=== PATIENT | female | born 1955 | race African-American/Black ===

== ENCOUNTER 2016-12-06 18:34 | Emergency (ER) | payer OTHER, MEDICAID ==
[~2016-12-06] VITALS: Ht 149.9 cm; Wt 111.0 kg
[~2016-12-06 18:34] MED LIST: ALBU2.5V13 NEB; CARI350T27 PO; CLON0.1T PO; FURO-152 PO; HYDR-3511 PO; LOSA50TA20 PO; METO50TA5 PO; OMEP20CA10 PO; TRAZ-132 PO
[2016-12-06 18:58] VITALS: BP 152/54
[2016-12-06] MEDS ORDERED: ACETAMINOPHEN 500MG TABLET PO ONE (22:30)
== END 2016-12-07 01:43 | disposition home or self-care (01) ==
LOC: ER 22:10
DX: S92.512A Displaced fracture of proximal phalanx of left lesser toe(s), initial encounter for closed fracture (principal); J45.909 Unspecified asthma, uncomplicated; I10 Essential (primary) hypertension; Z88.8 Allergy status to other drugs, medicaments and biological substances; W19.XXXA Unspecified fall, initial encounter; Y93.89 Activity, other specified; Y92.89 Other specified places as the place of occurrence of the external cause; Y99.8 Other external cause status
CPT/HCPCS: 29515; 73630; 99284

== ENCOUNTER 2017-03-07 13:17 | Emergency (ER) | payer OTHER, MEDICAID ==
[~2017-03-07] VITALS: Ht 149.9 cm; Wt 109.0 kg
[2017-03-07 15:17] LABS: CLARITY URINE CLEAR (CLEAR); COLOR URINE YELLOW (YELLOW); GLUCOSE URINE NEGATIVE (NEGATIVE); KETONES URINE NEGATIVE (NEGATIVE); LEUKOCYTE ESTERASE URINE NEGATIVE (NEGATIVE); NITRITE URINE NEGATIVE (NEGATIVE); OCCULT BLOOD URINE NEGATIVE (NEGATIVE); PROTEIN URINE NEGATIVE (NEGATIVE); SPECIFIC GRAVITY URINE 1.014 (1.005-1.030); UROBILINOGEN URINE 0.2 E.U./dL (0.2-1.0)
[2017-03-07 15:28] LABS: BASOPHILS % 2.2 % (0.0-2.0); EOSINOPHILS % 1.7 % (0.0-5.0); HEMATOCRIT. 34.9 % (36.0-48.0); HEMOGLOBIN. 11.5 g/dL (12.0-16.0); LYMPHOCYTES % 24.9 % (20.0-50.0); MEAN CORPUSCULAR HEMOGLOBIN 32.1 pg (28.0-32.0); MEAN CORPUSCULAR VOLUME 97.5 fL (81.0-99.0); MEAN PLATELET VOLUME 7.9 fl (7.4-10.4); MONOCYTES % 11.1 % (2.0-8.0); NEUTROPHILS % 60.1 % (40.0-76.0); PLATELET 261 x1000/uL (130-400); RED BLOOD CELL COUNT 3.58 mill/uL (4.2-5.4); RED CELL DISTRIBUTION WIDTH 14.2 % (11.6-14.6)
[2017-03-07 15:32] LABS: *AMPHETAMINES SCREEN URINE NEGATIVE (NEGATIVE); *BARBITURATES SCREEN URINE NEGATIVE (NEGATIVE); *BENZODIAZEPINES SCREEN URINE NEGATIVE (NEGATIVE); *COCAINE SCREEN URINE NEGATIVE (NEGATIVE); CANNABINOID URINE SCREEN NEGATIVE (NEGATIVE); METHADONE URINE SCREEN NEGATIVE (NEGATIVE); OPIATES URINE SCREEN NEGATIVE (NEGATIVE); PHENCYCLIDINE URINE SCREEN NEGATIVE (NEGATIVE)
[2017-03-07 15:40] LABS: AMMONIA 25 uMol/L (<32)
[2017-03-07 15:43] LABS: CARBON DIOXIDE 32 mEq/L (21-32); CHLORIDE 99 mEq/L (98-107); CREATINE KINASE 103 IU/L (26-192); ETHANOL BLOOD < 10 mg/dL
[2017-03-07 15:44] LABS: TROPONIN I < 0.02 ng/mL (0.00-0.04)
[2017-03-07 15:56] LABS: INR 1.1
[2017-03-07 18:32] VITALS: BP 124/61
== END 2017-03-07 19:11 | disposition home or self-care (01) ==
LOC: ER 13:17
DX: M62.838 Other muscle spasm (principal); K59.00 Constipation, unspecified; J45.909 Unspecified asthma, uncomplicated; Z87.891 Personal history of nicotine dependence; Z88.8 Allergy status to other drugs, medicaments and biological substances
CPT/HCPCS: 36415; 71010; 80053; 80305; 81003; 82140; 82550; 83735; 84443; 84484; 85025; 85610; 93005; 99285; G0482

== ENCOUNTER 2017-12-01 21:48 | Emergency (ER) | payer MEDICARE, MEDICAID ==
[~2017-12-01] VITALS: Ht 149.9 cm; Wt 109.9 kg
[~2017-12-01 21:48] MED LIST changes: +METO-539 PO; -METO50TA5 PO
[2017-12-01] MEDS ORDERED: ASPIRIN 325MG TABLET PO NR (23:45)
[2017-12-02 01:25] LABS: BASOPHILS % 0.3 % (0.0-2.0); EOSINOPHILS % 1.5 % (0.0-5.0); HEMATOCRIT. 29.7 % (36.0-48.0); HEMOGLOBIN. 9.6 g/dL (12.0-16.0); LYMPHOCYTES % 17.2 % (20.0-50.0); MEAN CORPUSCULAR HEMOGLOBIN 31.9 pg (28.0-32.0); MEAN CORPUSCULAR VOLUME 98.3 fL (81.0-99.0); MEAN PLATELET VOLUME 7.8 fl (7.4-10.4); MONOCYTES % 9.9 % (2.0-8.0); NEUTROPHILS % 71.1 % (40.0-76.0); PLATELET 319 x1000/uL (130-400); RED BLOOD CELL COUNT 3.02 mill/uL (4.2-5.4); RED CELL DISTRIBUTION WIDTH 15.1 % (11.6-14.6)
[2017-12-02 01:32] LABS: CHLORIDE 105 mEq/L (98-107)
[2017-12-02 01:36] LABS: INR 1.4; PARTIAL THROMBOPLASTIN TIME 30.1 sec (23.4-31.0); PROTHROMBIN TIME 14.7 sec (9.4-11.6)
[2017-12-02 04:22] LABS: CLARITY URINE CLEAR (CLEAR); COLOR URINE YELLOW (YELLOW); KETONES URINE NEGATIVE (NEGATIVE); LEUKOCYTE ESTERASE URINE NEGATIVE (NEGATIVE); NITRITE URINE NEGATIVE (NEGATIVE); OCCULT BLOOD URINE NEGATIVE (NEGATIVE); PROTEIN URINE NEGATIVE (NEGATIVE); SPECIFIC GRAVITY URINE 1.008 (1.005-1.030); UROBILINOGEN URINE 0.2 E.U./dL (0.2-1.0)
[2017-12-02 05:06] VITALS: BP 152/86
== END 2017-12-02 05:15 | disposition home or self-care (01) ==
LOC: ER 23:30
DX: R07.89 Other chest pain (principal); K80.20 Calculus of gallbladder without cholecystitis without obstruction; J45.909 Unspecified asthma, uncomplicated; I10 Essential (primary) hypertension; E78.00 Pure hypercholesterolemia, unspecified; M19.90 Unspecified osteoarthritis, unspecified site; Z87.891 Personal history of nicotine dependence; Z88.1 Allergy status to other antibiotic agents
CPT/HCPCS: 36415; 71045; 76700; 80053; 81003; 83605; 83880; 84484; 85025; 85610; 85730; 93005; 99285

== ENCOUNTER 2018-10-19 06:17 | Inpatient (IN) | payer MEDICARE, OTHER ==
[~2018-10-19] VITALS: Ht 162.6 cm; Wt 99.8 kg
[~2018-10-19 06:17] MED LIST changes: -HYDR-3511 PO; +HYDR-3512 PO; -LOSA50TA20 PO; +LOSA50TA41 PO; -OMEP20CA10 PO; +OMEP20CA5 PO; -TRAZ-132 PO; +TRAZ-213 PO
[2018-10-19] MEDS ORDERED: IPRATROPIUM BROMIDE (0.02%) 0.5MG/2.5ML NEB HHN STA (06:54)
[2018-10-19] MEDS ORDERED: METHYLPREDNISOLONE SOD SUCC 125 MG/2 ML VIAL IV STA (06:54)
[2018-10-19] MEDS ORDERED: ALBUTEROL (0.083%) 2.5MG/3ML NEB HHN STA (06:54)
[2018-10-19] MEDS ORDERED: MAGNESIUM 2 G PREMIX 50 ML IV ONE (07:00)
[2018-10-19] MEDS ORDERED: FUROSEMIDE 20MG/2ML VIAL IVP ONE (07:00)
[2018-10-19 07:09] LABS: CHLORIDE 102 mEq/L (98-107)
[2018-10-19 07:14] LABS: INR 1.8; PARTIAL THROMBOPLASTIN TIME 32.8 sec (23.4-31.0); PROTHROMBIN TIME 17.7 sec (9.6-11.0)
[2018-10-19 07:15] LABS: BASOPHILS % 0.6 % (0.0-2.0); EOSINOPHILS % 0.7 % (0.0-5.0); HEMATOCRIT. 36.3 % (36.0-48.0); HEMOGLOBIN. 11.9 g/dL (12.0-16.0); MEAN CORPUSCULAR HEMOGLOBIN 31.7 pg (28.0-32.0); MEAN PLATELET VOLUME 8.3 fl (7.4-10.4); MONOCYTES % 5.6 % (2.0-8.0); NEUTROPHILS % 82.1 % (40.0-76.0); PLATELET 261 x1000/uL (130-400); RED BLOOD CELL COUNT 3.75 mill/uL (4.2-5.4); RED CELL DISTRIBUTION WIDTH 14.1 % (11.6-14.6)
[2018-10-19 08:29] LABS: CLARITY URINE CLEAR (CLEAR); COLOR URINE YELLOW (YELLOW); KETONES URINE NEGATIVE (NEGATIVE); LEUKOCYTE ESTERASE URINE NEGATIVE (NEGATIVE); NITRITE URINE NEGATIVE (NEGATIVE); OCCULT BLOOD URINE NEGATIVE (NEGATIVE); PROTEIN URINE NEGATIVE (NEGATIVE); SPECIFIC GRAVITY URINE 1.006 (1.005-1.030); UROBILINOGEN URINE 0.2 E.U./dL (0.2-1.0)
[2018-10-19] MEDS ORDERED: POTASSIUM CHLORIDE 20MEQ TABLET SR PO ONE (08:30)
[2018-10-19 09:30] VITALS: BP 180/96
[2018-10-19 09:45] VITALS: BP 180/96
[2018-10-19 12:00] VITALS: BP 173/95
[2018-10-19] MEDS ORDERED: DIPHENHYDRAMINE 50MG/ML VIAL IV PRN (13:30)
[2018-10-19] MEDS ORDERED: MEDICATION NOT ON FORMULARY EA (Furosemide (Lasix) 20 MG) PO SCH (13:30)
[2018-10-19] MEDS ORDERED: HYDROCODONE/ACETAMINOPHEN 5/325MG TABLET PO PRN (13:30)
[2018-10-19] MEDS ORDERED: ACETAMINOPHEN 650MG SUPP PR PRN (13:30)
[2018-10-19] MEDS ORDERED: GUAIFENESIN 200MG/10ML SUGAR FREE UDC PO PRN (13:30)
[2018-10-19] MEDS ORDERED: DOCUSATE SODIUM 100MG CAPSULE PO PRN (13:30)
[2018-10-19] MEDS ORDERED: MEDICATION NOT ON FORMULARY EA (Metoprolol Tartrate 100 MG) PO SCH (13:30)
[2018-10-19] MEDS ORDERED: MAGNESIUM/ALUMINUM HYDROXIDE/SIMETHICONE 30ML UDC PO PRN (13:30)
[2018-10-19] MEDS ORDERED: MEDICATION NOT ON FORMULARY EA (Losartan Potassium 50 MG) PO SCH (13:30)
[2018-10-19] MEDS ORDERED: IPRATROPIUM/ALBUTEROL 0.5-3(2.5)MG/3ML NEB INH PRN (13:30)
[2018-10-19] MEDS ORDERED: ONDANSETRON HCL 4MG/2ML INJ IV PRN (13:30)
[2018-10-19] MEDS ORDERED: NA PHOS,M-B/NA PHOS,DI-BA ENEMA 118ML PR PRN (13:30)
[2018-10-19 14:08] LABS: BG BASE EXCESS 5.5 mmol/L (-2.0-2.0); BG CARBOXYHEMOGLOBIN 0.8 % (0.5-1.5); BG DEOXYHEMOGLOBIN 6.8 % (0.0-5.0); BG HCO3 ACT 28.2 mmol/L (22.0-26.0); BG METHEMOGLOBIN 0.2 % (0.0-1.5); BG OXYGEN SATURATION 93.1 % (92.0-98.5); BG OXYHEMOGLOBIN 92.2 % (94.0-97.0); BG PCO2 34.8 mmHg (35.0-45.0); BG PH 7.526 (7.350-7.450); BG SAMPLE SITE RIGHT BRACHIAL; BG VENT MODE ROOM AIR
[2018-10-19] MEDS: AMLODIPINE 5MG TABLET PO SCH (14:13)
[2018-10-19] MEDS: CLONIDINE 0.1MG TABLET PO PRN (15:14)
[2018-10-19] MEDS: LORATADINE 10MG TABLET PO SCH (15:14)
[2018-10-19] MEDS: FUROSEMIDE 20MG TABLET PO SCH (15:15)
[2018-10-19] MEDS: METHYLPREDNISOLONE SOD SUCC 40 MG/ML VIAL IV SCH ×2 (15:15→21:16)
[2018-10-19] MEDS: LOSARTAN POTASSIUM 50 MG TABLET PO SCH (15:15)
[2018-10-19] MEDS: LEVOFLOXACIN 500MG PREMIX 100 ML IV SCH (16:23)
[2018-10-19 16:44] VITALS: BP 193/112
[2018-10-19] MEDS ORDERED: MEDICATION NOT ON FORMULARY EA (Carisoprodol 350 MG) PO SCH (17:00)
[2018-10-19] MEDS: ACETAMINOPHEN 325MG TABLET PO PRN (17:22)
[2018-10-19] MEDS: METOPROLOL TARTRATE 50MG TABLET PO SCH (17:23)
[2018-10-19] MEDS ORDERED: HYDRALAZINE 20MG/ML VIAL IV PRN (17:30)
[2018-10-19] MEDS: CLONIDINE 0.1MG TABLET PO SCH ×2 (17:45→23:52)
[2018-10-19] MEDS ORDERED: WARFARIN SODIUM 3MG TABLET PO SCH (18:00)
[2018-10-19 20:00] VITALS: BP 138/86
[2018-10-19] MEDS: FAMOTIDINE 20MG/2ML VIAL IV SCH (21:15)
[2018-10-19] MEDS: MONTELUKAST SODIUM 10MG TABLET PO SCH (21:20)
[2018-10-19] MEDS: LORAZEPAM 0.5MG TABLET PO PRN (21:32)
[2018-10-19] MEDS: BUDESONIDE 0.5MG/2ML NEB HHN SCH (21:40)
[2018-10-19] MEDS: IPRATROPIUM/ALBUTEROL 0.5-3(2.5)MG/3ML NEB INH SCH (21:40)
[2018-10-20] VITALS: BP 136/82
[2018-10-20] MEDS: IPRATROPIUM/ALBUTEROL 0.5-3(2.5)MG/3ML NEB INH SCH ×6 (00:50→20:43)
[2018-10-20 04:00] VITALS: BP 155/81
[2018-10-20] MEDS: ACETAMINOPHEN 325MG TABLET PO PRN ×2 (05:04→14:55)
[2018-10-20] MEDS: METOPROLOL TARTRATE 50MG TABLET PO SCH ×2 (06:22→17:58)
[2018-10-20] MEDS: CLONIDINE 0.1MG TABLET PO SCH ×2 (06:22→18:40)
[2018-10-20] MEDS: METHYLPREDNISOLONE SOD SUCC 40 MG/ML VIAL IV SCH ×2 (06:23→17:56)
[2018-10-20 07:11] LABS: INR 1.3; PROTHROMBIN TIME 13.2 sec (9.6-11.0)
[2018-10-20 07:16] LABS: CHLORIDE 103 mEq/L (98-107)
[2018-10-20 07:24] LABS: BASOPHILS % 0.1 % (0.0-2.0); HEMATOCRIT. 34.8 % (36.0-48.0); HEMOGLOBIN. 11.6 g/dL (12.0-16.0); LYMPHOCYTES % 8.6 % (20.0-50.0); MEAN CORPUSCULAR HEMOGLOBIN 32.5 pg (28.0-32.0); MEAN CORPUSCULAR VOLUME 97.6 fL (81.0-99.0); MEAN PLATELET VOLUME 8.5 fl (7.4-10.4); MONOCYTES % 9.6 % (2.0-8.0); NEUTROPHILS % 81.7 % (40.0-76.0); PLATELET 255 x1000/uL (130-400); RED BLOOD CELL COUNT 3.57 mill/uL (4.2-5.4); RED CELL DISTRIBUTION WIDTH 13.8 % (11.6-14.6)
[2018-10-20 07:45] LABS: LDL CHOLESTEROL 76 mg/dL (5-100)
[2018-10-20 07:47] LABS: HDL CHOLESTEROL 94 mg/dL (40-59); T4 FREE 1.03 ng/dL (0.76-1.46)
[2018-10-20 08:00] VITALS: BP 158/86
[2018-10-20] MEDS: LOSARTAN POTASSIUM 50 MG TABLET PO SCH (09:03)
[2018-10-20] MEDS: LORATADINE 10MG TABLET PO SCH (09:03)
[2018-10-20] MEDS: FUROSEMIDE 20MG TABLET PO SCH (09:04)
[2018-10-20] MEDS: AMLODIPINE 5MG TABLET PO SCH ×2 (09:04→17:57)
[2018-10-20] MEDS: FAMOTIDINE 20MG/2ML VIAL IV SCH ×2 (09:14→21:08)
[2018-10-20] MEDS ORDERED: POTASSIUM CHLORIDE 20MEQ TABLET SR PO NR (09:30)
[2018-10-20] MEDS: POTASSIUM CHLORIDE 20MEQ TABLET SR PO SCH (11:30)
[2018-10-20 12:00] VITALS: BP 185/114
[2018-10-20 14:13] LABS: *AMPHETAMINES SCREEN URINE NEGATIVE (NEGATIVE)
[2018-10-20 14:14] LABS: *BARBITURATES SCREEN URINE NEGATIVE (NEGATIVE); *BENZODIAZEPINES SCREEN URINE NEGATIVE (NEGATIVE); *COCAINE SCREEN URINE NEGATIVE (NEGATIVE); CANNABINOID URINE SCREEN NEGATIVE (NEGATIVE); METHADONE URINE SCREEN NEGATIVE (NEGATIVE); OPIATES URINE SCREEN NEGATIVE (NEGATIVE); PHENCYCLIDINE URINE SCREEN NEGATIVE (NEGATIVE)
[2018-10-20] MEDS: HYDRALAZINE HCL 50MG TABLET PO SCH ×2 (14:55→21:08)
[2018-10-20 16:00] VITALS: BP 151/70
[2018-10-20] MEDS: BUDESONIDE 0.5MG/2ML NEB HHN SCH ×2 (16:27→20:43)
[2018-10-20] MEDS: APIXABAN 2.5 MG TABLET PO SCH (17:56)
[2018-10-20] MEDS: CLONIDINE 0.1MG TABLET PO PRN (17:57)
[2018-10-20] MEDS ORDERED: WARFARIN SODIUM 7.5MG TABLET PO SCH (18:00)
[2018-10-20] MEDS: LEVOFLOXACIN 500MG PREMIX 100 ML IV SCH (18:13)
[2018-10-20 20:00] VITALS: BP 144/83
[2018-10-20] MEDS: MONTELUKAST SODIUM 10MG TABLET PO SCH (21:08)
[2018-10-21] VITALS: BP 129/64
[2018-10-21] MEDS: CLONIDINE 0.1MG TABLET PO SCH ×3 (00:14→13:23)
[2018-10-21] MEDS: LORAZEPAM 0.5MG TABLET PO PRN (00:14)
[2018-10-21 04:00] VITALS: BP 141/81
[2018-10-21] MEDS: ACETAMINOPHEN 325MG TABLET PO PRN (04:34)
[2018-10-21] MEDS: HYDRALAZINE HCL 50MG TABLET PO SCH ×2 (06:11→13:20)
[2018-10-21] MEDS: METOPROLOL TARTRATE 50MG TABLET PO SCH (06:11)
[2018-10-21] MEDS: METHYLPREDNISOLONE SOD SUCC 40 MG/ML VIAL IV SCH (06:11)
[2018-10-21 06:31] LABS: CHLORIDE 103 mEq/L (98-107)
[2018-10-21 06:44] LABS: HEMATOCRIT 33.5 % (36.0-48.0); HEMOGLOBIN 11.2 g/dL (12.0-16.0); MEAN CORPUSCULAR HEMOGLOBIN 32.7 pg (28.0-32.0); MEAN CORPUSCULAR VOLUME 97.8 fL (81.0-99.0); PLATELET 284 x1000/uL (130-400); RED BLOOD CELL COUNT 3.43 mill/uL (4.2-5.4)
[2018-10-21] MEDS: IPRATROPIUM/ALBUTEROL 0.5-3(2.5)MG/3ML NEB INH SCH ×3 (07:48→15:27)
[2018-10-21 08:00] VITALS: BP 130/85
[2018-10-21] MEDS: POTASSIUM CHLORIDE 20MEQ TABLET SR PO SCH (08:53)
[2018-10-21] MEDS: FAMOTIDINE 20MG/2ML VIAL IV SCH (08:53)
[2018-10-21] MEDS: AMLODIPINE 5MG TABLET PO SCH (08:56)
[2018-10-21] MEDS: LORATADINE 10MG TABLET PO SCH (08:56)
[2018-10-21] MEDS: FUROSEMIDE 20MG TABLET PO SCH (08:56)
[2018-10-21] MEDS: APIXABAN 2.5 MG TABLET PO SCH (08:56)
[2018-10-21] MEDS: LOSARTAN POTASSIUM 50 MG TABLET PO SCH (08:56)
[2018-10-21] MEDS ORDERED: LEVOFLOXACIN 500MG TABLET PO SCH (11:00)
[2018-10-21 11:55] VITALS: BP 132/79
[2018-10-21 15:42] VITALS: BP 149/75
== END 2018-10-21 17:05 | disposition home health service (06) | DRG 291 ==
LOC: ER 06:17 → 7WST 07:50 → EDBEDREQ 07:55 → EDBEDREQTM 07:55 → ENRESERV 08:25
PROVIDERS: ADMIT Internal Medicine; ATTEND Internal Medicine
DX: I11.0 Hypertensive heart disease with heart failure (principal); J96.20 Acute and chronic respiratory failure, unspecified whether with hypoxia or hypercapnia; J44.1 Chronic obstructive pulmonary disease with (acute) exacerbation; J45.901 Unspecified asthma with (acute) exacerbation; D68.59 Other primary thrombophilia; E87.2 Acidosis; N39.0 Urinary tract infection, site not specified; E66.2 Morbid (severe) obesity with alveolar hypoventilation; I50.43 Acute on chronic combined systolic (congestive) and diastolic (congestive) heart failure; E87.6 Hypokalemia; R06.03 Acute respiratory distress; B96.20 Unspecified Escherichia coli [E. coli] as the cause of diseases classified elsewhere; D64.9 Anemia, unspecified; E03.9 Hypothyroidism, unspecified; E78.5 Hyperlipidemia, unspecified; I27.20 Pulmonary hypertension, unspecified; R73.03 Prediabetes; Z79.01 Long term (current) use of anticoagulants; Z86.718 Personal history of other venous thrombosis and embolism; Z87.891 Personal history of nicotine dependence; Z88.8 Allergy status to other drugs, medicaments and biological substances; Z68.37 Body mass index [BMI] 37.0-37.9, adult
CPT/HCPCS: 36415; 36600; 71045; 80048; 80061; 80305; 82375; 82805; 83036; 83605; 83880; 84145; 84439; 84443; 84484; 85027; 87077; 87186; 93005; 93306; 93970; 94640; 94644; 96365; 96375; 97162; 99291; C1893; J0360; J1940; J1956; J2920; J2930; J3475; J3490; J7050; J7611; J7620; J7626

== ENCOUNTER → 2019-07-15 | Outpatient (CLI) | payer MEDICARE, OTHER ==
[~2019-07-15] MED LIST changes: +OMEP20CA14 PO; -OMEP20CA5 PO; -TRAZ-213 PO; +TRAZ-252 PO
== END | disposition home or self-care (01) ==
LOC: US 13:50
PROVIDERS: ATTEND Internal Medicine Nephrology
DX: N18.9 Chronic kidney disease, unspecified (principal)
CPT/HCPCS: 76770

== ENCOUNTER 2020-01-20 09:40 | Emergency (ER) | payer BC, MEDICAID ==
[~2020-01-20] VITALS: Ht 149.9 cm; Wt 150.0 kg
[2020-01-20] MEDS ORDERED: LABETALOL 5MG/ML SYR 20 MG/4 ML SYRINGE IV ONE (10:30)
[2020-01-20 10:34] LABS: BASOPHILS % 0.6 % (0.0-2.0); EOSINOPHILS % 0.3 % (0.0-5.0); HEMATOCRIT. 36.8 % (36.0-48.0); HEMOGLOBIN. 12.1 g/dL (12.0-16.0); LYMPHOCYTES % 8.7 % (20.0-50.0); MEAN CORPUSCULAR HEMOGLOBIN 32.9 pg (28.0-32.0); MEAN CORPUSCULAR VOLUME 99.5 fL (81.0-99.0); MEAN PLATELET VOLUME 8.9 fl (7.4-10.4); MONOCYTES % 8.9 % (2.0-8.0); NEUTROPHILS % 81.5 % (40.0-76.0); PLATELET 208 x1000/uL (130-400); RED CELL DISTRIBUTION WIDTH 15.1 % (11.6-14.6)
[2020-01-20 10:41] LABS: CHLORIDE 99 mEq/L (98-107)
[2020-01-20 10:45] LABS: INR 1.1
[2020-01-20] MEDS ORDERED: LIDOCAINE HCL/EPINEPHRINE 1%-EPI 1:100,000 20 ML VIAL ONE (11:07)
[2020-01-20] MEDS ORDERED: BACITRACIN ZINC OINT UDPKT TOP ONE ×2 (11:15)
[2020-01-20] MEDS ORDERED: LIDOCAINE 1%/EPI 1:100,000 10 ML VIAL IJ ONE ×2 (11:15)
[2020-01-20] MEDS ORDERED: TETANUS, DIPHTHERIA, PERTUSSIS VAC/PF 0.5ML (>7YR OLD) IM ONE (11:15)
[2020-01-20 11:41] VITALS: BP 174/124
[2020-01-20 11:54] LABS: HEMATOCRIT 32.3 % (36.0-48.0); HEMOGLOBIN 10.6 g/dL (12.0-16.0); MEAN CORPUSCULAR HEMOGLOBIN 32.9 pg (28.0-32.0); MEAN CORPUSCULAR VOLUME 100.1 fL (81.0-99.0); PLATELET 186 x1000/uL (130-400); RED BLOOD CELL COUNT 3.23 mill/uL (4.2-5.4); RED CELL DISTRIBUTION WIDTH 14.8 % (11.6-14.6)
== END 2020-01-20 14:45 | disposition short-term general hospital (02) ==
LOC: ER 09:40 → EDBEDREQSVC 10:24 → ER 14:45 → CANBEDREQ 16:49
DX: S22.20XA Unspecified fracture of sternum, initial encounter for closed fracture (principal); S06.9X9A Unspecified intracranial injury with loss of consciousness of unspecified duration, initial encounter; I16.0 Hypertensive urgency; I11.0 Hypertensive heart disease with heart failure; I50.9 Heart failure, unspecified; D62 Acute posthemorrhagic anemia; Z88.1 Allergy status to other antibiotic agents; Z79.899 Other long term (current) drug therapy; Z98.51 Tubal ligation status; W18.30XA Fall on same level, unspecified, initial encounter; Y93.89 Activity, other specified; Y92.89 Other specified places as the place of occurrence of the external cause; Y99.8 Other external cause status
CPT/HCPCS: 36415; 70450; 71045; 71250; 72125; 80053; 83690; 83880; 84484; 85025; 85027; 85610; 86850; 86900; 86901; 90471; 90715; 93005; 96374; 99285; J3490

== ENCOUNTER 2021-05-11 17:45 | Inpatient (IN) | payer BC, MEDICAID ==
[~2021-05-11] VITALS: Ht 149.9 cm; Wt 98.0 kg
[2021-05-12 00:45] LABS: BASOPHILS % 0.9 % (0.0-2.0); EOSINOPHILS % 1.1 % (0.0-5.0); HEMATOCRIT. 32.9 % (36.0-48.0); HEMOGLOBIN. 10.7 g/dL (12.0-16.0); LYMPHOCYTES % 20.3 % (20.0-50.0); MEAN CORPUSCULAR HEMOGLOBIN 33.5 pg (28.0-32.0); MEAN PLATELET VOLUME 8.2 fl (7.4-10.4); NEUTROPHILS % 63.7 % (40.0-76.0); PLATELET 295 x1000/uL (130-400); RED CELL DISTRIBUTION WIDTH 16.8 % (11.6-14.6)
[2021-05-12 00:52] LABS: CHLORIDE 110 mEq/L (98-107)
[2021-05-12] MEDS ORDERED: SODIUM CHLORIDE 0.9% 1,000 ML IV ONE (04:00)
[2021-05-12 08:30] VITALS: BP 157/88
[2021-05-12] MEDS ORDERED: DOCUSATE SODIUM 100MG CAPSULE PO PRN (11:00)
[2021-05-12] MEDS ORDERED: NA PHOS,M-B/NA PHOS,DI-BA ENEMA 118ML PR PRN (11:00)
[2021-05-12] MEDS ORDERED: DIPHENHYDRAMINE 50MG/ML VIAL IV PRN (11:00)
[2021-05-12] MEDS ORDERED: IPRATROPIUM/ALBUTEROL 0.5-3(2.5)MG/3ML NEB NEB PRN (11:00)
[2021-05-12] MEDS ORDERED: LORAZEPAM 0.5MG TABLET PO PRN (11:00)
[2021-05-12] MEDS ORDERED: ACETAMINOPHEN 650MG SUPP PR PRN (11:00)
[2021-05-12] MEDS ORDERED: CLONIDINE 0.1MG TABLET PO PRN (11:00)
[2021-05-12] MEDS ORDERED: MAGNESIUM/ALUMINUM HYDROXIDE/SIMETHICONE 30ML UDC PO PRN (11:00)
[2021-05-12] MEDS ORDERED: GUAIFENESIN 200MG/10ML SUGAR FREE UDC PO PRN (11:00)
[2021-05-12] MEDS ORDERED: NALOXONE HCL 0.4MG/ML VIAL IV PRN (11:30)
[2021-05-12] MEDS: ONDANSETRON HCL 4MG/2ML INJ IV PRN ×2 (13:06→21:40)
[2021-05-12] MEDS: DEXT 5%/0.45% NACL 1000ML 1,000 ML IV SCH ×2 (13:07→21:41)
[2021-05-12] MEDS: PIPERACILLIN/TAZOBACTAM 3.375 G in DEXTROSE 5% WATER 50 ML IV SCH ×2 (13:07→21:41)
[2021-05-12 17:51] LABS: BASOPHILS % 0.9 % (0.0-2.0); EOSINOPHILS % 1.1 % (0.0-5.0); HEMOGLOBIN. 10.3 g/dL (12.0-16.0); LYMPHOCYTES % 11.1 % (20.0-50.0); MEAN CORPUSCULAR HEMOGLOBIN 33.7 pg (28.0-32.0); MEAN CORPUSCULAR VOLUME 101.4 fL (81.0-99.0); MEAN PLATELET VOLUME 8.7 fl (7.4-10.4); MONOCYTES % 12.4 % (2.0-8.0); NEUTROPHILS % 74.5 % (40.0-76.0); PLATELET 282 x1000/uL (130-400); RED BLOOD CELL COUNT 3.06 mill/uL (4.2-5.4); RED CELL DISTRIBUTION WIDTH 16.2 % (11.6-14.6)
[2021-05-12 18:05] LABS: INR 1.2; PARTIAL THROMBOPLASTIN TIME 26.8 sec (23.4-31.0); PROTHROMBIN TIME 12.3 sec (9.6-11.0)
[2021-05-12 18:07] LABS: CHLORIDE 113 mEq/L (98-107)
[2021-05-12 18:11] LABS: CREATINE KINASE 87 IU/L (26-192)
[2021-05-12 18:12] LABS: CREATINE KINASE MB FRACTION < 1.0 ng/mL (0.5-3.6)
[2021-05-12 20:00] VITALS: BP 76/41
[2021-05-12] MEDS ORDERED: INFLUENZA VACCINE 05/PF 0.5 ML SYRINGE IM ONE (20:00)
[2021-05-12] MEDS: FAMOTIDINE 20MG TABLET PO SCH (21:40)
[2021-05-12] MEDS: HEPARIN 5000 UNITS/ML VIAL SUBCUT SCH (21:41)
[2021-05-12 23:52] LABS: CREATINE KINASE 80 IU/L (26-192)
[2021-05-12 23:53] LABS: CREATINE KINASE MB FRACTION < 1.0 ng/mL (0.5-3.6)
[2021-05-13] VITALS: BP 87/48
[2021-05-13] MEDS ORDERED: SODIUM CHLORIDE 0.9% 500 ML IV NR (00:30)
[2021-05-13 04:00] VITALS: BP 91/45
[2021-05-13] MEDS: DEXT 5%/0.45% NACL 1000ML 1,000 ML IV SCH ×2 (07:00→20:31)
[2021-05-13 08:00] VITALS: BP 91/48
[2021-05-13] MEDS: HYDROCODONE/ACETAMINOPHEN 5/325MG TABLET PO PRN (08:48)
[2021-05-13] MEDS: HEPARIN 5000 UNITS/ML VIAL SUBCUT SCH ×2 (08:52→20:24)
[2021-05-13 10:07] LABS: HEMATOCRIT. 30.4 % (36.0-48.0); HEMOGLOBIN. 9.8 g/dL (12.0-16.0); MEAN CORPUSCULAR HEMOGLOBIN 33.4 pg (28.0-32.0); MEAN PLATELET VOLUME 8.7 fl (7.4-10.4); PLATELET 269 x1000/uL (130-400); RED BLOOD CELL COUNT 2.93 mill/uL (4.2-5.4); RED CELL DISTRIBUTION WIDTH 16.5 % (11.6-14.6)
[2021-05-13] MEDS: PIPERACILLIN/TAZOBACTAM 3.375 G in DEXTROSE 5% WATER 50 ML IV SCH ×2 (10:15→20:24)
[2021-05-13 10:21] LABS: CHLORIDE 110 mEq/L (98-107)
[2021-05-13 10:35] LABS: LDL CHOLESTEROL 55 mg/dL (5-100)
[2021-05-13 10:37] LABS: HDL CHOLESTEROL 83 mg/dL (40-59); T4 FREE 1.02 ng/dL (0.76-1.46)
[2021-05-13 11:31] LABS: PLATELET ESTIMATE NORMAL
[2021-05-13 12:00] VITALS: BP 92/56
[2021-05-13] MEDS: POTASSIUM CHLORIDE INJ 40 MEQ in DEXT 5% WATER 250 ML IV NR ×3 (12:00→15:07)
[2021-05-13] MEDS ORDERED: POTASSIUM CHLORIDE 20MEQ TABLET SR PO NR (15:15)
[2021-05-13 16:00] VITALS: BP 123/101
[2021-05-13] MEDS ORDERED: VANCOMYCIN HCL 1 GM/VIAL PO SCH (18:00)
[2021-05-13] MEDS: VANCOMYCIN HCL 1000 MG/20 ML ORAL PO SCH ×3 (18:38→21:38)
[2021-05-13 20:00] VITALS: BP 103/48
[2021-05-13] MEDS: FAMOTIDINE 20MG TABLET PO SCH (20:25)
[2021-05-13] MEDS ORDERED: MAGNESIUM 2 G PREMIX 50 ML IV ONE (21:30)
[2021-05-13] MEDS ORDERED: MAGNESIUM SULFATE 3 GM in DEXTROSE 5% WATER 100 ML IV NR (22:00)
[2021-05-13 22:37] LABS: CLARITY URINE CLEAR (CLEAR); COLOR URINE YELLOW (YELLOW); KETONES URINE NEGATIVE (NEGATIVE); LEUKOCYTE ESTERASE URINE TRACE (NEGATIVE); NITRITE URINE NEGATIVE (NEGATIVE); OCCULT BLOOD URINE NEGATIVE (NEGATIVE); PROTEIN URINE 1+ (NEGATIVE); SPECIFIC GRAVITY URINE 1.014 (1.005-1.030); UROBILINOGEN URINE 0.2 E.U./dL (0.2-1.0)
[2021-05-13 22:52] LABS: *AMPHETAMINES SCREEN URINE NEGATIVE (NEGATIVE); *BARBITURATES SCREEN URINE NEGATIVE (NEGATIVE); *BENZODIAZEPINES SCREEN URINE NEGATIVE (NEGATIVE); *COCAINE SCREEN URINE NEGATIVE (NEGATIVE); CANNABINOID URINE SCREEN NEGATIVE (NEGATIVE); PHENCYCLIDINE URINE SCREEN NEGATIVE (NEGATIVE)
[2021-05-13 22:53] LABS: METHADONE URINE SCREEN NEGATIVE (NEGATIVE); OPIATES URINE SCREEN PRESUMTIVE POSITIVE (NEGATIVE)
[2021-05-13] MEDS ORDERED: MAGNESIUM 1 G PREMIX 100 ML IV ONE (23:30)
[2021-05-14] VITALS: BP 111/50
[2021-05-14] MEDS: DEXT 5%/0.45% NACL 1000ML 1,000 ML IV SCH ×3 (02:24→23:03)
[2021-05-14 04:00] VITALS: BP 101/48
[2021-05-14] MEDS: HYDROCODONE/ACETAMINOPHEN 5/325MG TABLET PO PRN ×2 (04:15→20:17)
[2021-05-14 06:42] LABS: HEMATOCRIT. 30.5 % (36.0-48.0); HEMOGLOBIN. 9.5 g/dL (12.0-16.0); MEAN CORPUSCULAR HEMOGLOBIN 33.6 pg (28.0-32.0); MEAN CORPUSCULAR VOLUME 107.6 fL (81.0-99.0); MEAN PLATELET VOLUME 8.3 fl (7.4-10.4); PLATELET 214 x1000/uL (130-400); RED BLOOD CELL COUNT 2.84 mill/uL (4.2-5.4); RED CELL DISTRIBUTION WIDTH 16.8 % (11.6-14.6)
[2021-05-14 08:00] VITALS: BP 103/52
[2021-05-14] MEDS: VANCOMYCIN HCL 1000 MG/20 ML ORAL PO SCH ×4 (08:56→20:05)
[2021-05-14] MEDS: PIPERACILLIN/TAZOBACTAM 3.375 G in DEXTROSE 5% WATER 50 ML IV SCH ×2 (08:56→20:05)
[2021-05-14] MEDS: HEPARIN 5000 UNITS/ML VIAL SUBCUT SCH ×2 (08:56→20:06)
[2021-05-14 12:00] VITALS: BP 92/45
[2021-05-14 16:00] VITALS: BP 111/64
[2021-05-14 20:00] VITALS: BP 95/63
[2021-05-14] MEDS: FAMOTIDINE 20MG TABLET PO SCH (20:05)
[2021-05-15] VITALS: BP 103/65
[2021-05-15 03:56] VITALS: BP 106/66
[2021-05-15 08:00] VITALS: BP 123/80
[2021-05-15] MEDS: HEPARIN 5000 UNITS/ML VIAL SUBCUT SCH ×2 (08:52→21:50)
[2021-05-15] MEDS: PIPERACILLIN/TAZOBACTAM 3.375 G in DEXTROSE 5% WATER 50 ML IV SCH ×2 (08:52→21:54)
[2021-05-15] MEDS: VANCOMYCIN HCL 1000 MG/20 ML ORAL PO SCH ×4 (09:00→21:49)
[2021-05-15 10:00] LABS: PLATELET ESTIMATE NORMAL
[2021-05-15] MEDS: HYDROCODONE/ACETAMINOPHEN 5/325MG TABLET PO PRN ×2 (11:19→23:25)
[2021-05-15 12:00] VITALS: BP 128/79
[2021-05-15] MEDS: DEXT 5%/0.45% NACL 1000ML 1,000 ML IV SCH (13:31)
[2021-05-15 16:00] VITALS: BP 119/63
[2021-05-15 16:12] LABS: HEMATOCRIT. 29.5 % (36.0-48.0); HEMOGLOBIN. 9.6 g/dL (12.0-16.0); MEAN PLATELET VOLUME 8.5 fl (7.4-10.4); PLATELET 249 x1000/uL (130-400); RED BLOOD CELL COUNT 2.89 mill/uL (4.2-5.4); RED CELL DISTRIBUTION WIDTH 15.8 % (11.6-14.6)
[2021-05-15 16:32] LABS: CHLORIDE 105 mEq/L (98-107)
[2021-05-15 17:05] LABS: PLATELET ESTIMATE NORMAL
[2021-05-15] MEDS ORDERED: SODIUM CHLORIDE 0.9% 1,000 ML IV SCH (19:15)
[2021-05-15 20:00] VITALS: BP 111/69
[2021-05-15] MEDS: FAMOTIDINE 20MG TABLET PO SCH (21:50)
[2021-05-15] MEDS ORDERED: MAGNESIUM 4 G PREMIX 100 ML IV NR (23:00)
[2021-05-16] VITALS: BP 135/82
[2021-05-16 04:00] VITALS: BP 120/70
[2021-05-16 06:41] LABS: CHLORIDE 106 mEq/L (98-107); HEMATOCRIT. 27.7 % (36.0-48.0); HEMOGLOBIN. 9.2 g/dL (12.0-16.0); MEAN CORPUSCULAR HEMOGLOBIN 33.5 pg (28.0-32.0); PLATELET 249 x1000/uL (130-400); RED BLOOD CELL COUNT 2.74 mill/uL (4.2-5.4); RED CELL DISTRIBUTION WIDTH 15.4 % (11.6-14.6)
[2021-05-16 08:00] VITALS: BP 113/65
[2021-05-16] MEDS: PIPERACILLIN/TAZOBACTAM 3.375 G in DEXTROSE 5% WATER 50 ML IV SCH ×2 (10:32→22:32)
[2021-05-16] MEDS: HEPARIN 5000 UNITS/ML VIAL SUBCUT SCH (10:34)
[2021-05-16] MEDS: VANCOMYCIN HCL 1000 MG/20 ML ORAL PO SCH ×4 (10:34→22:31)
[2021-05-16] MEDS: HYDROCODONE/ACETAMINOPHEN 5/325MG TABLET PO PRN (10:35)
[2021-05-16 11:38] LABS: PLATELET ESTIMATE NORMAL
[2021-05-16 12:00] VITALS: BP 144/77
[2021-05-16 16:00] VITALS: BP 127/76
[2021-05-16 20:00] VITALS: BP 116/92
[2021-05-16] MEDS: FAMOTIDINE 20MG TABLET PO SCH (21:30)
[2021-05-17] VITALS: BP 109/57
[2021-05-17 04:00] VITALS: BP 126/73
[2021-05-17 08:00] VITALS: BP 136/65
[2021-05-17] MEDS: VANCOMYCIN HCL 1000 MG/20 ML ORAL PO SCH ×2 (09:26→13:00)
[2021-05-17] MEDS: PIPERACILLIN/TAZOBACTAM 3.375 G in DEXTROSE 5% WATER 50 ML IV SCH (09:26)
[2021-05-17 12:00] VITALS: BP 110/74
[2021-05-17 14:09] VITALS: BP 110/74
== END 2021-05-17 15:33 | disposition home or self-care (01) | DRG 391 ==
LOC: ER 17:45 → 6EST 05-12 05:44 → ENRESERV 05-12 07:11 → 6WST 05-13 03:20
PROVIDERS: ADMIT Internal Medicine; ATTEND Internal Medicine
DX: K57.32 Diverticulitis of large intestine without perforation or abscess without bleeding (principal); K85.90 Acute pancreatitis without necrosis or infection, unspecified; E44.0 Moderate protein-calorie malnutrition; I50.32 Chronic diastolic (congestive) heart failure; I13.0 Hypertensive heart and chronic kidney disease with heart failure and stage 1 through stage 4 chronic kidney disease, or unspecified chronic kidney disease; Z68.41 Body mass index [BMI] 40.0-44.9, adult; E87.1 Hypo-osmolality and hyponatremia; N17.9 Acute kidney failure, unspecified; D64.9 Anemia, unspecified; K21.9 Gastro-esophageal reflux disease without esophagitis; E83.42 Hypomagnesemia; E66.9 Obesity, unspecified; K80.20 Calculus of gallbladder without cholecystitis without obstruction; R73.9 Hyperglycemia, unspecified; N18.9 Chronic kidney disease, unspecified; R10.2 Pelvic and perineal pain; K76.0 Fatty (change of) liver, not elsewhere classified; J45.909 Unspecified asthma, uncomplicated; E87.6 Hypokalemia; Z98.51 Tubal ligation status; Z88.1 Allergy status to other antibiotic agents; Z79.899 Other long term (current) drug therapy; Z71.3 Dietary counseling and surveillance; R19.7 Diarrhea, unspecified
CPT/HCPCS: 36415; 71045; 74176; 76700; 76830; 76856; 80048; 80053; 80061; 80305; 81003; 82270; 82550; 82553; 83735; 84300; 84439; 84443; 84484; 85025; 87015; 87045; 87427; 87449; 87493; 89055; 93005; 93306; 93970; 99285; J1644; J2405; J2543; J3370; J3475; J3480; J7030; J7060; A4315